=== PATIENT | male | born 1985 | race Hispanic/Latino ===

== ENCOUNTER 2023-05-13 12:33 | Emergency (ER) | payer BC, SELFPAY ==
[2023-05-13 12:33] VITALS: BP 144/101; PULSE 92; RESP 16; TEMP 37; O2SAT 99
[2023-05-13] MEDS: KETOROLAC (*BKC) 60 MG/2 ML VIAL IM (12:57)
[2023-05-13] MEDS: ORPHENADRINE CITRATE 30 MG/ML 2 ML VIAL 60 MG IM (12:58)
--- NOTE | 2023-05-13 13:04 | ED.BACK ---
HPI - Back Pain/Injury General Chief Complaint: Back Pain/Injury Stated Complaint: back pain and cough Time Seen by Provider: 05/13/23 12:46 Source: patient Mode of arrival: ambulatory Limitations: no limitations History of Present Illness HPI Narrative: This is a 38-year-old [place] presents with some cough sinus congestion x1 month and there is currently no fever chills cough is mildly productive yellow sputum with sinus congestion and pressure bilateral ear pressure with no nausea vomiting no shortness of breath no audible wheezing. Patient is also complaining of low back pain that started after he had his persistent coughing radiating down his right leg. MD elicited complaint: back pain Pertinent past history: prior back pain Onset (ago): hour(s) Timing: constant Severity: moderate Pain scale (0-10): 8 Quality: spasming Related Data Allergies Allergy/AdvReac Type Severity Reaction Status Date / Time No Known Allergies Allergy Verified 05/13/23 12:49 Review of Systems Review of Systems: All systems reviewed & are unremarkable except as noted in HPI and below PMFSH Past Medical History Medical History Patient denies medical problems Exam Const: General: healthy appearing Nutritional Appearance: well nourished Orientation/consciousness: patient oriented x3 Limitations: no limitations HENMT: Other: frontal maxillary sinus tenderness with palpation with bilateral ear dullness. Eyes: Conjunctivae: conjunctivae normal Pupils: Equal, round and reactive pupils present EOM: EOMs intact bilaterally Neck: Neck: normal visual inspection Chest: Chest palpation & inspection: normal inspection of the chest Resp: Effort & Inspection: normal respiratory effort Auscultation: clear to auscultation bilaterally Cardio: Rate: regular rate Rhythm: regular rhythm GI: GI Palp: Yes Soft to palpation Urinary Catheter: Urinary Catheter: patent and draining Back/Spine/Pelvis: Back: no CVA tenderness Skin: General skin exam: normal color Rashes: no rashes Neuro: General: patient oriented x3 and moves all extremities Extrem: Other: Positive straight leg raising test on right with L4 and 5 Right paravertebral tenderness with palpation Course Course Emergency Course: patient received a muscle relaxer IM with Toradol 60mg for pain after reassessment pain level has improved patient is going to be treated for a sinus infection antibiotics sent to his pharmacy. Vital Signs Vital signs: Vital Signs Temperature 37.0 C 05/13/23 12:33 Pulse Rate 92 05/13/23 12:33 Respiratory Rate 16 05/13/23 12:33 Blood Pressure 144/101 H 05/13/23 12:33 Pulse Oximetry 99 05/13/23 12:33 Oxygen Delivery Room Air 05/13/23 12:33 Temperature 37.0 C 05/13/23 12:33 Pulse Rate 92 05/13/23 12:33 Respiratory Rate 16 05/13/23 12:33 Blood Pressure 144/101 H 05/13/23 12:33 Pulse Oximetry 99 05/13/23 12:33 Oxygen Delivery Room Air 05/13/23 12:33 Critical Care Time Critical Care Time Critical Care Time: No Discharge Plan Discharge Clinical Impression: Sciatica Qualifiers: Laterality: unspecified laterality Qualified Code(s): M54.30 - Sciatica, unspecified side Sinusitis Qualifiers: Sinusitis location: frontal Chronicity: acute Recurrence: non-recurrent Qualified Code(s): J01.10 - Acute frontal sinusitis, unspecified Patient Disposition: Home, Self-Care Condition: Stable Instructions: Antibiotic Form, Sinusitis (ED), Sciatica (ED) Additional Instructions: take medicine as prescribed and follow-up with primary care physician if symptoms persist or worsen. can also take Claritin daily [id number] x1 week. Prescriptions: New Flonase Sensimist 27.5 mcg/actuation spray,suspension 2 spray intranasal DAILY Qty: 5.9 0RF Rx Instructions: into each nostril tramadol 50 mg tablet
[2023-05-13 13:24] VITALS: BP 138/95; PULSE 87; RESP 20; O2SAT 97
== END 2023-05-13 13:30 | disposition home or self-care (01) ==
LOC: CHSED 13:11
PROVIDERS: Emergency Provider Emergency Medicine
DX: M54.30 Sciatica, unspecified side (principal); J01.10 Acute frontal sinusitis, unspecified
CPT/HCPCS: 96372; 99284; J1885; J2360